=== PATIENT | male | born 1995 | race African-American/Black ===

== ENCOUNTER 2024-02-11 13:46 | Outpatient (CLI) | payer BC | END 2024-02-11 13:47 | disposition home or self-care (01) | LOC: CSHMRI 13:46 | PROVIDERS: ATTEND Family Medicine | DX: M47.26 Other spondylosis with radiculopathy, lumbar region (principal); M47.27 Other spondylosis with radiculopathy, lumbosacral region | CPT/HCPCS: 72148 ==